=== PATIENT | female | born 1960 | race Hispanic/Latino ===

== ENCOUNTER 2020-04-15 02:01 | Emergency (ER) | payer SELFPAY ==
[2020-04-15] MEDS ORDERED: MORPHINE 4 MG/ML SYR ONE (03:05)
[2020-04-15] MEDS ORDERED: ONDANSETRON 4 MG/2 ML VIAL ONE (03:05)
[2020-04-15] MEDS ORDERED: NA CHLORIDE 0.9% 1,000 ML ONE (03:05)
[2020-04-15 03:11] LABS: Absolute Lymphocytes (CBC) 1.8 K/uL (0.7-4.9); Basophils % 0.5 % (0-1.3); Hematocrit 39.9 % (36.0-45.0); Lymphocytes % 16.3 % (15.3-44.8); MPV 10.6 fL (7.6-11.3); RBC Red Blood Cell Count 4.41 M/uL (3.86-4.86)
[2020-04-15 03:11] LABS: Urine Blood 2+ (NEG); Urine Glucose NEGATIVE (NEG); Urine Protein 1+ (NEG); Urine Specific Gravity 1.025 (1.005-1.030); Urine pH 7.5 (5.0-7.0)
[2020-04-15 03:39] LABS: ALT/SGPT 18 U/L (12-78); AST/SGOT 20 U/L (15-37); Albumin 3.8 g/dL (3.4-5.0); Alkaline Phosphatase 92 U/L (45-117); BUN Blood Urea Nitrogen 13 mg/dL (7-18); Bicarbonate 26 mmol/L (21-32); Bilirubin Direct < 0.1 mg/dL (0-0.2); Bilirubin Total 0.3 mg/dL (0.2-1.0); Glucose Level 176 mg/dL (74-106); Lipase 152 U/L (73-393); Potassium 3.9 mmol/L (3.5-5.1); Protein, Total 7.7 g/dL (6.4-8.2); Sodium Level 144 mmol/L (136-145)
[2020-04-15 04:15] LABS: Urine Bacteria <20 /HPF (<20); Urine Culture Reflex Order NOT NEEDED; Urine RBC >50 /HPF (NONE SEEN)
--- NOTE | 2020-04-15 04:41 | ER ---
Nurse's Notes [facility] Name: Leonie Coley Age: 59 yrs Sex: Female : 1960 Arrival Date: 04/15/2020 Time: 02:03 Bed 16 Private MD: Diagnosis: Ureterolithiasis Presentation: 04/15 02:20 Chief complaint: Patient states: right side abdominal pain, nausea and vomiting started rr5 3 hours ago. Coronavirus screen: Client denies travel out of the [place] in the last 14 days. At this time, the client does not indicate any symptoms associated with coronavirus-19. Ebola Screen: Patient negative for fever greater than or equal to 101.5 degrees Fahrenheit, and additional compatible Ebola Virus Disease symptoms Patient denies exposure to infectious person. Patient denies travel to an Ebola-affected area in the 21 days before illness onset. Initial Sepsis Screen: Does the patient meet any 2 criteria? No. Patient's initial sepsis screen is negative. Does the patient have a suspected source of infection? Yes: Acute abdominal pain. Risk Assessment: Do you want to hurt yourself or someone else? Patient reports no desire to harm self or others. Onset of symptoms was April 15, 2020. 02:20 Method Of Arrival: Ambulatory rr5 02:20 Acuity: MOHINI 3 rr5 Historical: - Allergies: 02:23 No Known Allergies; rr5 - Home Meds: 02:23 None [Active]; rr5 - PMHx: 02:23 None; rr5 - PSHx: 02:23 None; rr5 - Immunization history:: Adult Immunizations unknown. - Social history:: Smoking status: unknown Patient/guardian denies using alcohol, street drugs. Screenin:40 Abuse screen: Denies threats or abuse. Denies injuries from another. Nutritional lp1 screening: No deficits noted. Tuberculosis screening: No symptoms or risk factors identified. Fall Risk None identified. Assessment: 02:45 General: Appears uncomfortable, Behavior is appropriate for age. Pain: Complains of lp1 pain in right lower quadrant Pain currently is 10 out of 10 on a pain scale. Neuro: Level of Consciousness is awake, alert, obeys commands, Oriented to person, place, time, situation. Cardiovascular: Patient's skin is warm and dry. Respiratory: Respiratory effort is even, unlabored. GI: Abdomen is non-distended, Bowel sounds present X 4 quads. Abdomen is tender to palpation in right lower quadrant. : Reports pain in right flank(s), Denies burning with urination. EENT: No signs and/or symptoms were reported regarding the EENT system. Derm: Skin is pink, warm \T\ dry. Musculoskeletal: No deficits noted. 03:30 Reassessment: Patient appears in no apparent distress at this time. Patient and/or lp1 family updated on plan of care and expected duration. Pain level reassessed. Patient resting, eyes closed, respirations unlabored. 04:15 Reassessment: Patient appears in no apparent distress at this time. Patient states lp1 feeling better at this time; pain minimal to RLQ. Vital Signs: 02:20 BP 148 / 61; Pulse 47; Resp 16; Pulse Ox 96% ; Weight 50.8 kg; Height 5 ft. 1 in. rr5 (154.94 cm); Pain 10/10; 02:46 Temp 97.6(O); lp1 02:46 Pain 10/10; lp1 03:30 BP 133 / 48; Pulse 52; Resp 18; Pulse Ox 96% on R/A; lp1 04:24 BP 145 / 60; Pulse 50; Resp 16; Pulse Ox 98% on R/A; lp1 02:20 Body Mass Index 21.16 (50.80 kg, 154.94 cm) rr5 ED Course: 02:03 Patient arrived in ED. cl3 02:23 Triage completed. rr5 02:24 Arm band placed on right wrist. rr5 02:32 Milagros Diaz, KAYA is Primary Nurse. lp1 02:33 James Mustafa MD is Attending Physician. mh7 02:40 Inserted saline lock: 20 gauge in left antecubital area, using aseptic technique. Blood lp1 collected. 03:40 Patient has correct armband on for positive identification. lp1 04:24 No provider procedures requiring assistance completed. lp1 04:40 Nayeli Pace MD is Referral Physician. mh7 04:58 IV discontinued, No redness/swelling at site. Pressure dressing applied. lp1 Administered Medications: 03:00 Drug: NS 0.9% 1000 ml Route: IV; Rate: 1000 ml; Site: left antecubital; lp1 04:58 Follow up: IV Status: Completed infusion; IV Intake: 800ml lp1 03:00 Drug: morphine 4 mg Route: IVP; Site: left antecubital; lp1 04:00 Follow up: Response: Marked relief of symptoms; Pain is decreased lp1 03:00 Drug: Zofran (Ondansetron) 4 mg Route: IVP; Site: left antecubital; lp1 04:00 Follow up: Response: No adverse reaction; Marked relief of symptoms lp1 Intake: 04:58 IV: 800ml; Total: 800ml. lp1 Outcome: 04:41 Discharge ordered by . [facility] 04:58 Discharged to home ambulatory, with significant other. lp1 04:58 Condition: good 04:58 Discharge instructions given to patient, Instructed on discharge instructions, follow up and referral plans. medication usage, Demonstrated understanding of instructions, follow-up care, medications, Prescriptions given X 5 04:59 Patient left the ED. lp1 Signatures: Milagros Diaz RN RN lp1 Ryan Vale RN RN rr5 Betsy Nevarez cl3 James Mustafa MD MD 7
--- NOTE | 2020-04-15 04:41 | EDPHYS ---
Physician Documentation [facility] Name: Leonie Coley Age: 59 yrs Sex: Female : 1960 Arrival Date: 04/15/2020 Time: 02:03 Bed 16 Private MD: ED Physician James Mustafa HPI: 04/15 03:30 This 59 yrs old Female presents to ER via Ambulatory with complaints of mh7 Abdominal Pain. 03:30 The patient presents with abdominal pain in the lower abdomen. Onset: The mh7 symptoms/episode began/occurred 4 hour(s) ago. The symptoms radiate to the right flank. 03:31 Associated signs and symptoms: Pertinent positives: nausea and vomiting, Pertinent mh7 negatives: anorexia, blood in stools, chest pain, constipation, diarrhea, dysuria, fever, headache, hematuria, palpitations, shortness of breath, vaginal discharge, vomiting blood. The symptoms are described as intermittent, vague, waxing/waning. Modifying factors: The symptoms are alleviated by nothing, the symptoms are aggravated by movement. Severity of pain: At its worst the pain was moderate today, in the emergency department the pain is unchanged. Historical: - Allergies: 02:23 No Known Allergies; rr5 - Home Meds: 02:23 None [Active]; rr5 - PMHx: 02:23 None; rr5 - PSHx: 02:23 None; rr5 - Immunization history:: Adult Immunizations unknown. - Social history:: Smoking status: unknown Patient/guardian denies using alcohol, street drugs. ROS: 03:31 Constitutional: Negative for fever, chills, and weight loss, Eyes: Negative for injury, mh7 pain, redness, and discharge, ENT: Negative for injury, pain, and discharge, Neck: Negative for injury, pain, and swelling, Cardiovascular: Negative for chest pain, palpitations, and edema, Respiratory: Negative for shortness of breath, cough, wheezing, and pleuritic chest pain, : Negative for injury, bleeding, discharge, and swelling, MS/Extremity: Negative for injury and deformity, Skin: Negative for injury, rash, and discoloration, Neuro: Negative for headache, weakness, numbness, tingling, and seizure, Psych: Negative for depression, anxiety, suicide ideation, homicidal ideation, and hallucinations, Allergy/Immunology: Negative for hives, rash, and allergies, Endocrine: Negative for neck swelling, polydipsia, polyuria, polyphagia, and marked weight changes, Hematologic/Lymphatic: Negative for swollen nodes, abnormal bleeding, and unusual bruising. Exam: 03:31 Constitutional: This is a well developed, well nourished patient who is awake, alert, mh7 and in no acute distress. Head/Face: Normocephalic, atraumatic. Eyes: Pupils equal round and reactive to light, extra-ocular motions intact. Lids and lashes normal. Conjunctiva and sclera are non-icteric and not injected. Cornea within normal limits. Periorbital areas with no swelling, redness, or edema. Neck: Trachea midline, no thyromegaly or masses palpated, and no cervical lymphadenopathy. Supple, full range of motion without nuchal rigidity, or vertebral point tenderness. No Meningismus. Chest/axilla: Normal chest wall appearance and motion. Nontender with no deformity. No lesions are appreciated. Cardiovascular: Regular rate and rhythm with a normal S1 and S2. No gallops, murmurs, or rubs. Normal PMI, no JVD. No pulse deficits. Respiratory: Lungs have equal breath sounds bilaterally, clear to auscultation and percussion. No rales, rhonchi or wheezes noted. No increased work of breathing, no retractions or nasal flaring. 03:31 Skin: Warm, dry with normal turgor. Normal color with no rashes, no lesions, and no evidence of cellulitis. MS/ Extremity: Pulses equal, no cyanosis. Neurovascular intact. Full, normal range of motion. Neuro: Awake and alert, GCS 15, oriented to person, place, time, and situation. Cranial nerves II-XII grossly intact. Motor strength 5/5 in all extremities. Sensory grossly intact. Cerebellar exam normal. Normal gait. Psych: Awake, alert, with orientation to person, place and time. Behavior, mood, and affect are within normal limits. 03:31 Abdomen/GI: Inspection: abdomen appears normal, Bowel sounds: normal, in all quadrants, Palpation: moderate abdominal tenderness, in the suprapubic area and right lower quadrant, Rectal exam: the exam is deferred, because of patient request, Indicators: McBurney's point is not tender, Springer's sign is negative, Rovsing's sign is negative, Obturator sign is negative, Psoas sign is negative, Liver: no appreciated palpable abnormalities, Hernia: not appreciated. 03:31 Back: pain, is absent, ROM is normal, normal spinal alignment noted, CVA tenderness, that is moderate, is noted on the right, muscle spasm, is not present. Vital Signs: 02:20 BP 148 / 61; Pulse 47; Resp 16; Pulse Ox 96% ; Weight 50.8 kg; Height 5 ft. 1 in. rr5 (154.94 cm); Pain 10/10; 02:46 Temp 97.6(O); lp1 02:46 Pain 10/10; lp1 03:30 BP 133 / 48; Pulse 52; Resp 18; Pulse Ox 96% on R/A; lp1 04:24 BP 145 / 60; Pulse 50; Resp 16; Pulse Ox 98% on R/A; lp1 02:20 Body Mass Index 21.16 (50.80 kg, 154.94 cm) rr5 MDM: 02:56 Patient medically screened. mh7 04:38 Differential diagnosis: appendicitis, bowel obstruction, diverticulitis, non-specific mh7 abd pain, Pyelonephritis, Ureterolithiasis, urinary tract infection. Data reviewed: vital signs, nurses notes, lab test result(s), CBC, electrolytes, urinalysis, radiologic studies, CT scan. Data interpreted: Pulse oximetry: on room air is 98 %. Interpretation: normal. Counseling: I had a detailed discussion with the patient and/or guardian regarding: the historical points, exam findings, and any diagnostic results supporting the discharge/admit diagnosis, the presence of at least one elevated blood pressure reading (>120/80) during this emergency department visit, lab results, radiology results, the need for outpatient follow up, a urologist, to return to the emergency department if symptoms worsen or persist or if there are any questions or concerns that arise at home. Response to treatment: the patient's symptoms have resolved after treatment, the patient's blood pressure is in an acceptable range, mental status has returned to baseline, the patient no longer shows bradycardia, the patient is not short of breath, the patient is not tachycardic, the patient's pain is gone, the patient's temperature has normalized. 04/15 02:46 Order name: Basic Metabolic Panel lp1 04/15 02:46 Order name: CBC with Diff lp1 04/15 02:46 Order name: Hepatic Function lp1 04/15 02:46 Order name: Lipase 1 04/15 02:51 Order name: Urine Dipstick--Ancillary (enter results) 2 04/15 03:11 Order name: Urine Dipstick-Ancillary; Complete Time: 03:56 EDMS 04/15 02:57 Order name: CT Abd/Pelvis - IV Contrast Only [facility] 04/15 03:17 Order name: Urine Microscopic Only [facility] 04/15 03:17 Order name: Urine Culture 1 04/15 03:23 Order name: CBC with Automated Diff; Complete Time: 03:56 EDMS 04/15 03:40 Order name: Basic Metabolic Panel; Complete Time: 03:56 EDMS 04/15 03:40 Order name: Liver (Hepatic) Function; Complete Time: 03:56 EDMS 04/15 03:40 Order name: Lipase; Complete Time: 03:56 EDMS 04/15 04:15 Order name: Urine Microscopic Only; Complete Time: 04:36 EDMS 04/15 02:46 Order name: IV Saline Lock; Complete Time: 02:48 lp1 04/15 02:46 Order name: Labs collected and sent; Complete Time: 02:48 lp1 04/15 02:48 Order name: Urine Dipstick-Ancillary (obtain specimen); Complete Time: 03:17 lp1 Administered Medications: 03:00 Drug: NS 0.9% 1000 ml Route: IV; Rate: 1000 ml; Site: left antecubital; lp1 04:58 Follow up: IV Status: Completed infusion; IV Intake: 800ml lp1 03:00 Drug: morphine 4 mg Route: IVP; Site: left antecubital; lp1 04:00 Follow up: Response: Marked relief of symptoms; Pain is decreased lp1 03:00 Drug: Zofran (Ondansetron) 4 mg Route: IVP; Site: left antecubital; lp1 04:00 Follow up: Response: No adverse reaction; Marked relief of symptoms 1 Disposition: 05:41 Co-signature as Attending Physician, James Mustafa MD. mh7 Disposition: 04/15/20 04:41 Discharged to Home. Impression: Ureterolithiasis. - Condition is Stable. - Discharge Instructions: Kidney Stones, [id number]. - Prescriptions for Zofran ODT 4 mg Oral tablet,disintegrating - take 1 tablet by ORAL route every 8 hours As needed; 10 tablet. ketorolac 10 mg Oral tablet - take 1 tablet by ORAL route every 8 hours not to exceed 40 mg in 24hrs; 12 tablet. Tylenol- Codeine #3 300-30 mg Oral Tablet - take 1 tablet by ORAL route every 6 hours As needed; 15 tablet. Flomax 0.4 mg Oral Capsule, Sust. Release 24 hr - take 1 capsule by ORAL route once daily 1/2 hour following the same meal each day; 7 capsule. Colace 100 mg Oral Tablet - take 1 tablet by ORAL route every 12 hours; 14 tablet. - Medication Reconciliation Form, Thank You Letter, Antibiotic Education, Prescription Opioid Use form. - Follow up: Private Physician; When: 1 - 2 days; Reason: Worsening of condition, Recheck today's complaints, Continuance of care, Re-evaluation by your physician. Follow up: Nayeli Pace MD; When: 2 - 3 days; Reason: Worsening of condition, Recheck today's complaints. - Problem is new. - Symptoms have improved. Signatures: Dispatcher [employer] EDMilagros Rosario RN RN lp1 Ryan Vale RN RN rr5 James Mustafa MD MD mh7 Corrections: (The following items were deleted from the chart) 04:59 04:41 04/15/2020 04:41 Discharged to Home. Impression: Ureterolithiasis. Condition is lp1 Stable. Forms are Medication Reconciliation Form, Thank You Letter, Antibiotic Education, Prescription Opioid Use. Follow up: Private Physician; When: 1 - 2 days; Reason: Worsening of condition, Recheck today's complaints, Continuance of care, Re-evaluation by your physician. Follow up: Nayeli Pace; When: 2 - 3 days; Reason: Worsening of condition, Recheck today's complaints. Problem is new. Symptoms have improved. mh7
--- NOTE | 2020-04-16 08:47 | RAD REPORT ---
EXAM DESCRIPTION: Abdomen Pelvis W Contrast CLINICAL HISTORY: Abdominal pain. COMPARISON: None. TECHNIQUE: Axial CT imaging of the abdomen and pelvis performed with intravenous contrast. Axial ori ging performed in the arterial and portal venous phases. Reformatted coronal and sagittal images revi ewed. A dose reduction technique was utilized with automated exposure control according to patient size. FINDINGS: Clear lung bases. Heart is normal in size. Normal liver size and contour. No liver mass or biliary dilatation. Normal attenuation. Normal gallbl adder, spleen, pancreas, adrenal glands. There is moderate dilatation of the right renal pelvis. AP pelvis is 1.7 cm. There is no renal stone or hydronephrosis. Mildly decreased attenuation of the right kidney relative to the left. There is as ymmetric dilatation of the right ureter. There is a distal right ureteral stone in the mid pelvis up to 8 mm. Normal left kidney. Normal caliber abdominal aorta and inferior vena cava. Mesenteric vessels are well-opacified. There is a small hiatal hernia. Normal remaining stomach. The small bowel loops are unremarkable. Nor mal appendix within the right hemipelvis. There is a large amount of fecal debris within the cecum. T here is no evidence of colitis. Mild sigmoid colon diverticulosis. No ascites. No free air. No mesent john adenopathy. Unremarkable bladder. Normal uterus. Follicular changes are present within the right ovary. There is normal lumbar alignment. Mild lumbar disc bulges from L3 to S1. Intact bony pelvis. Normal h ips. IMPRESSION: 1. 8mm distal right ureteral stone in the mid pelvis resulting in moderate right hydronephrosis and m ild obstructive uropathy. 2. Small hiatal hernia. 3. Mild sigmoid colon diverticulosis without diverticulitis. Electronically signed by: Yuliya Campo DO 04/15/2020 4:26 AM CDT Due to temporary technical issues with the PACS/Fluency reporting system, reports are being signed by the in house radiologist without review as a courtesy to ensure prompt reporting. The interpreting r adiologist is fully responsible for the content of the report.
== END 2020-04-15 04:59 | disposition home or self-care (01) ==
LOC: ER 02:01
DX: N20.1 Calculus of ureter (principal)
CPT/HCPCS: 36415; 74177; 80048; 80076; 81003; 81015; 83690; 85025; 87086; 87088; 96361; 96374; 96375; 99284; J2405; J7030; Q9967